=== PATIENT | female | born 1970 | race Caucasian/White ===

== ENCOUNTER 2019-01-14 16:17 | Emergency (ER) | payer OTHER ==
--- NOTE | 2019-01-14 17:54 | ED Physician Documentation ---
PD HPI UPPER EXT INJURY - Stated complaint Stated Complaint: LT HAND INJURY - Chief complaint Chief Complaint: Ext Problem - History obtained from History obtained from: Patient - History of Present Illness Location: Left, Hand Type of injury: Fall Where injury occurred: Work Timing - onset: Yesterday (slipped in bathroom at work and guarded fall with palm/hand. pain and bruising thenar area and wrist.) Timing - details: Abrupt onset, Still present Review of Systems Skin: denies: Abrasion (s), Laceration (s) Musculoskeletal: denies: Neck pain, Back pain Neurologic: denies: Focal weakness, Numbness, Confused, Altered mental status, Head injury PD PAST MEDICAL HISTORY - Past Medical History Past Medical History: No - Allergies Allergies/Adverse Reactions: Allergies Allergy/AdvReac Type Severity Reaction Status Date / Time erythromycin base Allergy Unknown Verified 01/14/19 16:28 [From Erythrocin] Penicillins Allergy Rash Verified 01/14/19 16:28 PD ED PE NORMAL - Vitals Vital signs reviewed: Yes - General General: Alert and oriented X 3, No acute distress, Well developed/nourished - Derm Derm: Normal color, Warm and dry - Extremities Extremities: Other (left hand with bruising and tender at thenar area. Not tneder in snuffbox area.) - Neuro Neuro: Alert and oriented X 3, No motor deficit, No sensory deficit, Normal speech Results - Vitals Vitals: Vital Signs - 24 hr 01/14/19 01/14/19 16:28 18:58 Temperature 36.8 C Heart Rate 78 78 Respiratory 16 16 Rate Blood Pressure 121/83 H 120/80 O2 Saturation 98 98 Oxygen O2 Source Room air - Rads (name of study) left hand Radiology: Prelim report reviewed (no fractures.), See rad report PD MEDICAL DECISION MAKING - ED course Complexity details: considered differential, d/w patient, d/w family Departure - Departure Disposition: 01 Home, Self Care Clinical Impression: Accidental fall Qualifiers: Encounter type: initial encounter Qualified Code(s): W19.XXXA - Unspecified fall, initial encounter Hand contusion Qualifiers: Encounter type: initial encounter Laterality: left Qualified Code(s): S60.222A - Contusion of left hand, initial encounter Condition: Stable Record reviewed to determine appropriate education?: Yes Instructions: ED Contusion Hand Comments: No obvious fractures on your x-ray. Use the splint to help protect motion at the base of the thumb and wrist until its feeling better. The bruising itself can take a week or so to decrease in tenderness and swelling. The coloration may last for even a couple of weeks as it goes from purple to green to yellow. Progress activity and use as tolerated. Tylenol ibuprofen if needed for pains. Discharge Date/Time: 01/14/19 18:58
[2019-01-14 18:59] VITALS: BP 120/80
--- NOTE | 2019-01-14 19:14 | XRAY Report ---
Reason: fell and landed thenar area Procedure Date: 01/14/2019 Accession Number: [id number] / [id number] Procedure: XR - Hand 3 View LT CPT Code: Final Report FULL RESULT: EXAM: LEFT HAND RADIOGRAPHY EXAM DATE: 01/14/2019 06:47 PM. CLINICAL HISTORY: Fell and landed thenar area. COMPARISON: None. TECHNIQUE: 3 views. FINDINGS: Bones: No acute fracture. No suspicious osseous lesion. Joints: No significant joint space narrowing. No dislocation. Other: None. IMPRESSION: No acute osseous abnormality. [facility]
== END 2019-01-14 18:58 | disposition home or self-care (01) ==
LOC: ED 16:17
DX: S60.222A Contusion of left hand, initial encounter (principal); W01.0XXA Fall on same level from slipping, tripping and stumbling without subsequent striking against object, initial encounter; Y99.0 Civilian activity done for income or pay
CPT/HCPCS: 1040M; 73130; 99282; 99283

== ENCOUNTER 2019-04-16 16:11 | Outpatient (CLI) | payer OTHER ==
[2019-04-16 16:52] LABS: BASOPHILS # (AUTO) 0.1 10^3/uL (0.0-0.1); BASOPHILS % (AUTO) 0.6 %; EOSINOPHILS # (AUTO) 0.4 10^3/uL (0.0-0.7); EOSINOPHILS % (AUTO) 3.9 %; HGB - HEMOGLOBIN 13.5 g/dL (12.0-16.0); LYMPHOCYTES # (AUTO) 2.3 10^3/uL (1.5-3.5); LYMPHOCYTES % (AUTO) 23.9 %; MEAN CORPUSCULAR HEMOGLOBIN 29.3 pg (27.0-31.0); MEAN CORPUSCULAR HGB CONC 32.8 g/dL (32.0-36.0); MEAN CORPUSCULAR VOLUME 89.2 fL (81.0-99.0); MEAN PLATELET VOLUME 10.9 fL (7.9-10.8); MONOCYTES # (AUTO) 0.9 10^3/uL (0.0-1.0); MONOCYTES % (AUTO) 9.1 %; NEUTROPHILS # (AUTO) 5.9 10^3/uL (1.5-6.6); NEUTROPHILS % (AUTO) 62.2 %; PLT - PLATELET COUNT 269 10^3/uL (130-450); RED BLOOD COUNT 4.61 10^6/uL (4.20-5.40); RED CELL DISTRIBUTION WIDTH 12.7 % (12.0-15.0); WHITE BLOOD COUNT 9.5 x10^3/uL (4.8-10.8)
[2019-04-16 17:04] LABS: CALCIUM 9.5 mg/dL (8.5-10.3); CREATININE 0.8 mg/dL (0.4-1.0)
--- NOTE | 2019-04-18 03:02 | Ultrasound Report ---
Reason: ENLARGED THYROID Procedure Date: 04/16/2019 Accession Number: [id number] / [id number] Procedure: US - Head or Neck Soft Tissue CPT Code: Final Report FULL RESULT: EXAM: THYROID ULTRASOUND EXAM DATE: 04/16/2019 05:46 PM. CLINICAL HISTORY: ENLARGED THYROID. COMPARISON: None. TECHNIQUE: Real time sonographic imaging of the thyroid was performed by the admission nurse coordinator. Multiple advertising representative static images were saved for review. FINDINGS: THYROID GLAND: Right Lobe: 6.1 x 1.6 x 1.7 cm, volume 8.7 cc. Heterogeneous echotexture. Right Lobe Nodules: Multiple small hypoechoic nodules with the largest measuring 0.5 x 0.4 cm. Left Lobe: 6.1 x 1.3 x 1.5 cm, volume X.2 cc. Heterogeneous echotexture. Left Lobe Nodules: Multiple tiny hypoechoic nodules with largest measuring 0.4 x 0.4 cm. Isthmus: 0.6 cm AP. Isthmic Nodules: None. LYMPH NODES: No adenopathy demonstrated in the central or lateral compartment. The right lymph nodes measure up to 1.6 x 0.4 x 0.8 cm. Left lymph nodes measure up to 1.4 x 0.2 x 0.7 cm. OTHER: None. IMPRESSION: Multiple small hypoechoic nodules scattered throughout both lobes of the thyroid. No suspicious features. Management recommendations are based on 2015 [place] [employer] Management Guidelines for Adult Patients with Thyroid Nodules and Differentiated Thyroid Cancer. [facility]
== END 2019-04-16 16:12 | disposition home or self-care (01) ==
LOC: DI 16:11
PROVIDERS: ATTEND Registered Nurse
DX: E04.2 Nontoxic multinodular goiter (principal); Z13.29 Encounter for screening for other suspected endocrine disorder; N95.1 Menopausal and female climacteric states
CPT/HCPCS: 36415; 76536; 80048; 84443; 85025